=== PATIENT | female | born 1965 ===

== ENCOUNTER 2019-04-15 21:19 | Inpatient (IN) | payer OTHER ==
[~2019-04-15] VITALS: Ht 167.6 cm; Wt 97.5 kg
[2019-04-15] MEDS ORDERED: PRILOSEC OTC20 MG (21:42)
[2019-04-15] MEDS ORDERED: ZANTAC 7575 MG (21:42)
[2019-04-15] MEDS ORDERED: NORVASC5 MG (21:42)
[2019-04-20] MEDS ORDERED: AMOX1TAB5 PO (13:47)
== END 2019-04-20 14:57 | disposition home or self-care (01) | DRG 446 ==
LOC: ER 21:19 → SURH 04-16 15:32
PROVIDERS: ADMIT Internal Medicine
DX: K80.10 Calculus of gallbladder with chronic cholecystitis without obstruction (principal); I10 Essential (primary) hypertension; Z53.8 Procedure and treatment not carried out for other reasons